=== PATIENT | male | born 1950 | race Hispanic/Latino ===

== ENCOUNTER 2019-11-23 12:43 | Emergency (ER) | payer BC ==
[2019-11-23 13:16] LABS: #Eosinphils 0.1 thou/uL (0.0-0.7); #Lymphocytes 1.7 thou/uL (1.20-3.40); #Neutrophils 7.2 thou/uL (1.40-6.50); %Basophils 0.1 % (0.0-1.0); %Eosinophils 1.1 % (0.0-10.0); %Lymphocytes 16.6 % (21.0-51.0); %Monocytes 9.6 % (0.0-10.0); %Neutrophils 72.5 % (42.0-75.0); Hemoglobin 13.4 g/dL (14.0-18.0); Mean Corpuscular HGB CONC 34.6 g/dL (32.0-36.0); Mean Corpuscular Hemoglobin 30.7 pg (27.0-31.0); Mean Corpuscular Volume 88.6 fL (78.0-98.0); Mean Platelet Volume 8.1 fL (7.4-10.4); Platelet Count 270 thou/uL (130-400); RBC Distribution Width 12.3 % (11.5-14.5); Red Blood Cell (RBC) Count 4.37 mill/uL (4.70-6.10); White Blood Cell (WBC) Count 9.9 thou/uL (4.8-10.8)
[2019-11-23 13:38] LABS: ALT (SGPT) 14 U/L (8-55); AST (SGOT) 15 U/L (5-34); Alkaline Phosphatase 65 U/L (40-110); Anion Gap 15 mmol/L (10-20); BUN (Urea Nitrogen) 13 mg/dL (8.4-25.7); Bilirubin, Total 0.3 mg/dL (0.2-1.2); Calc. Creatinine Clearance 0 mL/min (70-130); Calcium 9.8 mg/dL (7.8-10.44); Carbon Dioxide 28 mmol/L (23-31); Chloride 98 mmol/L (98-107); Estimated GFR-MDRD 74; Globulin 3.2 g/dL (2.4-3.5); Glucose 140 mg/dL (80-115); Lipase 43 U/L (8-78); Potassium 3.8 mmol/L (3.5-5.1); Protein, Total 7.2 g/dL (5.8-8.1); Sodium 137 mmol/L (136-145)
--- NOTE | 2019-11-23 13:57 | CT ---
CT ABDOMEN AND PELVIS WITH IV CONTRAST 11/23/2019 CLINICAL INFORMATION: Fullness after eating. Vomiting. Patient feels bloated. Irregular bowel movement. COMPARISON: None. Technique: Multiple contiguous axial CT images are obtained through the abdomen and pelvis with IV contrast. Cor onal reformatted images are provided. FINDINGS: Lower Chest: Vascular calcifications are seen in the coronary arteries. The lung bases are clear. Vessels: Vascular calcifications are seen in the abdominal aorta and iliac arteries. Abdomen: Portal vein:Patent Gallbladder: Within normal limits for CT imaging. Liver: within normal limits. Spleen: within normal limits. Pancreas: within normal limits. Adrenals: within normal limits. Kidneys: Subcentimeter too small to characterize hypodense lesions are seen in the midportion right k idney. Kidneys otherwise have normal CT appearance. Bowel: Scattered colonic diverticula are seen. Small amount of fluid is seen throughout the colon. Lo ops of small bowel are normal in caliber. Appendix: The appendix is visualized and normal in caliber. Peritoneum: No ascites or free air; no fluid collection. Mesentery and Retroperitoneum: No enlarged mesenteric or retroperitoneal lymph nodes. Abdominal Wall: Small fat-containing bilateral inguinal canals are seen. Pelvis: Reproductive Organs: No pelvic masses. Bladder: within normal limits. Bones: Degenerative changes seen throughout the spine. IMPRESSION: 1. No acute findings in the abdomen or pelvis. 2. Vascular calcifications. 3. Colonic diverticulosis. 4. Subcentimeter too small to characterize right renal hypodensities.
[2019-11-23] MEDS ORDERED: Iopamidol-370 76% 500 ML 1 ML ONE (14:26)
--- NOTE | 2019-12-01 15:32 | EKG ---
Test Reason : ABD PAIN Blood Pressure : / mmHG Vent. Rate : 062 BPM Atrial Rate : 062 BPM P-R Int : 148 ms QRS Dur : 092 ms QT Int : 404 ms P-R-T Axes : 056 -31 044 degrees QTc Int : 410 ms Normal sinus rhythm Left axis deviation Abnormal ECG Confirmed by ROSSANA ROMERO DO ([id number]), associate entertainment editor KEVAN TRAN ([id number]) on 12/01/2019 3:32:46 PM Referred By: HEATHER Confirmed By:ROSSANA ROMERO DO
== END 2019-11-23 14:41 | disposition home or self-care (01) ==
LOC: ERS 12:43
DX: R10.9 Unspecified abdominal pain (principal); R11.0 Nausea; F17.210 Nicotine dependence, cigarettes, uncomplicated; I10 Essential (primary) hypertension; E78.5 Hyperlipidemia, unspecified; E11.9 Type 2 diabetes mellitus without complications; Z79.84 Long term (current) use of oral hypoglycemic drugs; Z79.899 Other long term (current) drug therapy
CPT/HCPCS: 74177; 80053; 83690; 84484; 85025; 93005; Q9967

== ENCOUNTER 2019-12-27 10:39 | Observation (INO) | payer BC ==
[2019-12-27] MEDS ORDERED: Aspirin Chewable 81 MG TAB ONE (11:04)
[2019-12-27] MEDS ORDERED: Nitroglycerin 2% Ointment 1 INCH/1 GM Packet ONE (11:04)
[2019-12-27 11:05] LABS: #Eosinphils 0.1 thou/uL (0.0-0.7); #Lymphocytes 1.6 thou/uL (1.20-3.40); #Monocytes 0.7 thou/uL (0.11-0.59); #Neutrophils 4.9 thou/uL (1.40-6.50); %Basophils 0.1 % (0.0-1.0); %Eosinophils 1.5 % (0.0-10.0); %Lymphocytes 21.4 % (21.0-51.0); %Monocytes 9.5 % (0.0-10.0); %Neutrophils 67.5 % (42.0-75.0); Hemoglobin 13.2 g/dL (14.0-18.0); Mean Corpuscular HGB CONC 33.6 g/dL (32.0-36.0); Mean Corpuscular Hemoglobin 30.4 pg (27.0-31.0); Mean Corpuscular Volume 90.7 fL (78.0-98.0); Mean Platelet Volume 8.1 fL (7.4-10.4); Platelet Count 245 thou/uL (130-400); RBC Distribution Width 12.6 % (11.5-14.5); Red Blood Cell (RBC) Count 4.33 mill/uL (4.70-6.10); White Blood Cell (WBC) Count 7.2 thou/uL (4.8-10.8)
[2019-12-27 11:36] LABS: ALT (SGPT) 20 U/L (8-55); AST (SGOT) 18 U/L (5-34); Albumin 4.4 g/dL (3.4-4.8); Alkaline Phosphatase 66 U/L (40-110); Anion Gap 13 mmol/L (10-20); BUN (Urea Nitrogen) 16 mg/dL (8.4-25.7); Bilirubin, Total 0.3 mg/dL (0.2-1.2); Calc. Creatinine Clearance 0 mL/min (70-130); Calcium 9.4 mg/dL (7.8-10.44); Carbon Dioxide 25 mmol/L (23-31); Chloride 103 mmol/L (98-107); Estimated GFR-MDRD 73; Globulin 2.7 g/dL (2.4-3.5); Glucose 154 mg/dL (80-115); Potassium 4.4 mmol/L (3.5-5.1); Protein, Total 7.1 g/dL (5.8-8.1); Sodium 137 mmol/L (136-145)
--- NOTE | 2019-12-27 11:49 | RAD ---
PORTABLE CHEST 1 VIEW: Date: 12/27/2019 Time: 1059 hours HISTORY: Chest pain, left arm numbness. COMPARISON: 03/02/2003. FINDINGS: The heart size is borderline. The lungs are well expanded without lobar consolidation, pneumothoraces , or pleural effusions. The aorta is tortuous. There is no evidence of karie pulmonary edema. IMPRESSION: No radiographic evidence of acute cardiopulmonary process. POS: OFF
[2019-12-27] MEDS ORDERED: Nitroglycerin 0.4 MG TAB (25 Tab Bottle) SL PRN (11:58)
[2019-12-27 15:36] LABS: Troponin I Less than 0.010 ng/mL (< 0.028)
[2019-12-27] MEDS ORDERED: HumaLOG 300 UNITS/3 ML VIAL SC PRN (16:07)
[2019-12-27] MEDS ORDERED: Dextrose 5% in Water 1,000 ML IV PRN (16:07)
[2019-12-27] MEDS ORDERED: Dextrose 50% Abboject 50 ML SYRINGE SLOW IVP PRN (16:07)
[2019-12-27 17:33] VITALS: BMI 38.0
[2019-12-27 17:51] LABS: Troponin I Less than 0.010 ng/mL (< 0.028)
--- NOTE | 2019-12-27 21:30 | HP ---
CHIEF COMPLAINT: Chest pain. HISTORY OF PRESENT ILLNESS: The patient is a 69-year-old male with past medical history of hypertension and diabetes, who comes into the hospital with complaints of chest pain, worsening for the past couple of days. The patient states that he has been having some chest pressure to his left side of the chest for the past couple of days, he did not take any medications. He stated that today the reason he came in is because he felt his left arm was more weaker than his right and he got concerned, so he came into the hospital for further evaluation. The patient currently states that his left arm weakness has resolved, however continues to have the chest pain. He denies any shortness of breath, any nausea, vomiting, or any diaphoresis. The patient states that he was lawn mowing when he started having this significant pain. The patient states that he has been having this pain for the past couple of days every time, all the time also. PAST MEDICAL HISTORY: History of hypertension, diabetes. PAST SURGICAL HISTORY: He denies. ALLERGIES: HE HAS NONE. MEDICATIONS: The patient does not know the name of the medications; however, he states that he takes something for diabetes and hypertension. FAMILY HISTORY: Denies. SOCIAL HISTORY: He smokes half a pack a day. Drinks beer on the weekend. No drug use. REVIEW OF SYSTEMS: All negative except for the ones mentioned above in the HPI. LABORATORY RESULTS: As of the following; sodium of 137, potassium of 4.4, BUN of 16, creatinine 1.02. His troponin x2 were negative. His BNP is 49. His LFTs are normal. WBCs of 7.2, hemoglobin of 13.2, hematocrit of 39.2, and platelets of 245. His EKG appears to be normal. He had a chest x-ray, which did not show any acute abnormalities. ASSESSMENT AND PLAN: The patient is a very pleasant 69-year-old male, who presents to the hospital with complaints of chest pain. 1. Chest pain. We will trend troponins x3. We will go ahead and do a stress test. We will start the patient's home medications and continue to monitor. 2. Hypertension. We will continue his home medications. 3. Diabetes. We will continue his home medications and check an Accu-Chek before meals and at bedtime. 4. Obesity. The patient was educated on diet, exercise, and weight loss. 5. Deep venous thrombosis prophylaxis. We will put the patient on SCDs and subcu Lovenox. Job ID: [id number]
[2019-12-28 04:58] LABS: Cardiac Risk 4.4 (Less than 4.5)
[2019-12-28] MEDS ORDERED: Aspirin 325 mg Enteric Coated Tablet PO SCH (09:00)
[2019-12-28] MEDS ORDERED: Enoxaparin Sodium 40 MG/0.4 ML SYRINGE SC SCH (09:00)
[2019-12-28] MEDS ORDERED: Regadenoson 0.4 MG/5 ML SYRINGE ONE (09:21)
--- NOTE | 2019-12-28 11:49 | NM ---
CARDIAC SPECT: HISTORY: A 69-year-old male with chest pain, hypertension, diabetes, dyslipidemia, smoker. TECHNIQUE: A myocardial perfusion scan was performed using the single-isotope 2-day protocol with 31 mCi Technet ium 99m sestamibi injected intravenously for the rest and stress images. Pharmacologic stress with L exiScan is monitored and interpreted by Alaina Alfonso, nurse practitioner. FINDINGS: There is a small area of mildly decreased uptake in the apex on the stress images compared to the res t. No other defects are seen. GATED SPECT LVEF: 58%. WALL MOTION EXAM: Normal. IMPRESSION: Findings are suggestive of apical ischemia. POS: OFF
[2019-12-28 15:23] VITALS: TEMP 98.1
[2019-12-28] MEDS ORDERED: Clopidogrel Bisulfate 300 MG TAB PO SCH (15:30)
[2019-12-28] MEDS ORDERED: Aspirin 81 mg Enteric Coated Tablet PO SCH (15:30)
[2019-12-28] MEDS ORDERED: glipiZIDE 10 MG TAB PO SCH (16:30)
[2019-12-28] MEDS ORDERED: metFORMIN 500 MG TAB PO SCH (17:00)
[2019-12-28 17:10] VITALS: BP 160/78
--- NOTE | 2019-12-28 20:27 | CON ---
DATE OF CONSULTATION: HISTORY OF PRESENT ILLNESS: The patient is a very pleasant 69-year-old gentleman with history of hypertension and diabetes mellitus, who presented with left-sided chest discomfort and numbness in his left arm. The patient has previously suffered a cerebrovascular accident. He reports that he occasionally has numbness in his left arm. The patient came to the emergency room after he was at work and developed left-sided chest discomfort. This discomfort persisted throughout the day yesterday and eventually resolved this morning. The patient denied becoming dyspneic or short of breath. The chest pain did not radiate. The patient has multiple cardiac risk factors including diabetes mellitus, hypertension, dyslipidemia, tobacco abuse and a strong family history of coronary artery disease. PAST MEDICAL HISTORY: 1. Hypertension. 2. Diabetes mellitus. 3. History of CVA. PAST SURGICAL HISTORY: Surgery on his right axilla. SOCIAL HISTORY: Smokes half pack per day. FAMILY HISTORY: Strong family history of coronary artery disease with brother with several family members having myocardial infarctions. MEDICATIONS: 1. Coreg 25 b.i.d. 2. Metformin 1000 b.i.d. 3. Glipizide 10 b.i.d. 4. Januvia 100 daily. 5. Norvasc 10 daily. 6. Aspirin 81 daily. 7. Pravastatin 40 daily. 8. Pepcid 40 mg daily. ALLERGIES: NO KNOWN DRUG ALLERGIES REVIEW OF SYSTEMS: Ten-point system otherwise unremarkable. No history of easy bruising or bleeding or bright red blood per rectum. PHYSICAL EXAMINATION: GENERAL: Obese gentleman, in no acute distress. VITAL SIGNS: Blood pressure 167/76. NECK: No jugular venous distention. LUNGS: Clear to auscultation. HEART: Regular rate and rhythm. Normal S1 and S2. No murmurs. ABDOMEN: Distended. EXTREMITIES: Showed mild bilateral edema. VASCULAR: Radial pulses are 2+. LABORATORY DATA: Sodium 137, potassium 4.4, chloride 103, bicarbonate 25, BUN 16, creatinine 1.02, and glucose 154. Troponin 0.01. BNP was 49. White blood cell count 7.2, hemoglobin 13.2, hematocrit 39.2, and platelets are 245. EKG revealed sinus bradycardia, otherwise normal ECG. Troponin level was less than 0.01. Cardiolite stress test revealed normal left ventricular ejection fraction, 58% with possible apical ischemia. IMPRESSION: 1. Chest pain, possibly due to ischemic heart disease. 2. Hypertension. 3. Diabetes mellitus. 4. Dyslipidemia. 5. Tobacco abuse. 6. History of cerebrovascular accident. 7. Obesity. This gentleman presents with prolonged episode of chest pain. There is no evidence of a myocardial infarction based on his EKG or cardiac enzymes. The patient, however, has multiple risk factors and did have evidence of possible ischemia. I explained to the patient that the stress test may underestimate the extent of his possible coronary artery disease. I would recommend proceeding with a cardiac catheterization for more definitive diagnosis. The patient declines to undergo this procedure. He is adamant that he wants to leave the hospital today. I explained the potential life-threatening consequences as the patient being noncompliant. I would treat the patient as if he had unstable angina and start him on Plavix. We would also increase the dose of his lisinopril to lower his blood pressure. I will follow this patient with you through his hospitalization. Job ID: [id number] MTDD
[2019-12-28] MEDS ORDERED: Lisinopril 20 MG TAB PO SCH (21:00)
[2019-12-28] MEDS ORDERED: Atorvastatin Calcium 10 MG TAB PO SCH (21:00)
[2019-12-28] MEDS ORDERED: Carvedilol 25 MG TAB PO SCH (21:00)
[2019-12-28] MEDS ORDERED: Atorvastatin Calcium 40 MG TAB PO SCH (21:00)
--- NOTE | 2019-12-29 02:41 | DIS ---
DATE OF ADMISSION: 12/27/2019 DATE OF DISCHARGE: 12/28/2019 DISCHARGE DIAGNOSES: 1. Chest pain. 2. Abnormal stress test. 3. Hyperlipidemia. 4. Hypertension. 5. Diabetes. 6. Obesity. HOSPITAL COURSE: The patient is 69-year-old male, who initially presented to the hospital with complaints of chest pain. At this time, troponins x2 were negative. He did undergo a stress test, which indicated findings suggestive of apical ischemia. At this time, Cardiology was consulted. The patient was offered cardiac catheterization; however, he stated that he does not want to stay in the hospital and will follow up as an outpatient. Risks were discussed with this patient including , and he understands and he still wanted to go home. His medications were optimized and he was given cardiology's information. DISCHARGE MEDICATIONS: His medications will be: 1. Pravastatin 40 mg at bedtime. 2. Aspirin 81 mg daily. 3. Plavix 75 mg daily. 4. Lisinopril 20 mg b.i.d. 5. Nitroglycerin 0.4 t.i.d. as needed. 6. Glipizide 10 mg b.i.d. 7. Metformin a 1000 mg b.i.d. 8. Coreg 25 mg b.i.d. 9. Januvia 100 mg daily. 10. Amlodipine 10 mg daily. PHYSICAL EXAMINATION: VITAL SIGNS: On discharge, temperature of 98.1, 67, 18, 95% on room air, 167/76. GENERAL: He is awake, alert, and oriented x3. Does not appear in distress. He currently is chest pain-free. CV: S1, S2 present. No murmurs, rubs, or gallops. ABDOMEN: Soft, nontender. Bowel sounds are present x2. Again, he will be discharged to home. Follow up with his primary and Cardiology. Job ID: [id number]
[2019-12-29] MEDS ORDERED: Lisinopril 20 MG TAB PO SCH (09:00)
[2019-12-29] MEDS ORDERED: Aspirin 81 mg Enteric Coated Tablet PO SCH (09:00)
[2019-12-29] MEDS ORDERED: Amlodipine 10 MG TAB PO SCH (09:00)
[2019-12-29] MEDS ORDERED: Alogliptin 25 MG TAB PO SCH (09:00)
[2019-12-29] MEDS ORDERED: Clopidogrel Bisulfate 75 MG TAB PO SCH (09:00)
== END 2019-12-28 17:24 | disposition home or self-care (01) ==
LOC: ERS 10:39 → 2SW 12:06
PROVIDERS: ADMIT Internal Medicine; ATTEND Internal Medicine
DX: R07.89 Other chest pain (principal); R94.39 Abnormal result of other cardiovascular function study; E78.5 Hyperlipidemia, unspecified; I10 Essential (primary) hypertension; E11.9 Type 2 diabetes mellitus without complications; F17.210 Nicotine dependence, cigarettes, uncomplicated; E66.9 Obesity, unspecified; Z68.37 Body mass index [BMI] 37.0-37.9, adult; Z86.73 Personal history of transient ischemic attack (TIA), and cerebral infarction without residual deficits; Z79.82 Long term (current) use of aspirin; Z79.84 Long term (current) use of oral hypoglycemic drugs; Z79.899 Other long term (current) drug therapy
CPT/HCPCS: 36415; 36416; 71045; 78452; 80053; 80061; 83880; 84484; 85025; 93005; 93017; 94760; A9500; G0378; J2785

== ENCOUNTER 2020-01-24 10:30 | Inpatient (IN) | payer BC ==
[2020-01-24 11:32] LABS: Hemoglobin 13.6 g/dL (14.0-18.0); Mean Corpuscular HGB CONC 33.8 g/dL (32.0-36.0); Mean Corpuscular Hemoglobin 30.8 pg (27.0-31.0); Mean Corpuscular Volume 90.9 fL (78.0-98.0); Mean Platelet Volume 8.8 fL (7.4-10.4); Platelet Count 269 thou/uL (130-400); RBC Distribution Width 12.4 % (11.5-14.5); Red Blood Cell (RBC) Count 4.41 mill/uL (4.70-6.10); White Blood Cell (WBC) Count 9.2 thou/uL (4.8-10.8)
[2020-01-24 11:48] LABS: Hemoglobin A1c 7.1 % (4.0-6.0)
[2020-01-24 12:40] LABS: Anion Gap 17 mmol/L (10-20); BUN (Urea Nitrogen) 10 mg/dL (8.4-25.7); Calc. Creatinine Clearance 0 mL/min (70-130); Calcium 9.6 mg/dL (7.8-10.44); Carbon Dioxide 23 mmol/L (23-31); Chloride 102 mmol/L (98-107); Estimated GFR-MDRD Greater than 90; Glucose 186 mg/dL (80-115); Potassium 5.4 mmol/L (3.5-5.1); Sodium 137 mmol/L (136-145)
[2020-01-24 17:08] LABS: SARS-CoV-2 MS2 Positive; SARS-CoV-2 N Gene Negative; SARS-CoV-2 S Gene Negative; SARS-CoV-2 by NAA Not Detected (NotDetected); SARS-CoV-2 orf1ab Negative
[2020-01-29] MEDS ORDERED: Midazolam HCl 2 mg/2 ml Vial ONE (06:33)
[2020-01-29] MEDS ORDERED: Fentanyl 100 MCG/2 ML VIAL ONE (06:33)
[2020-01-29] MEDS ORDERED: Vecuronium 10 MG VIAL ONE ×3 (06:34→12:32)
[2020-01-29] MEDS ORDERED: Dexmedetomidine 200 MCG/2 ML VIAL ONE (06:34)
[2020-01-29] MEDS ORDERED: Midazolam HCl 5 mg/5 ml Vial ONE (06:34)
[2020-01-29] MEDS ORDERED: Albumin 5% 500 ML ONE (06:36)
[2020-01-29] MEDS ORDERED: Heparin 10,000 UNITS/1 ML VIAL 30,000 UNITS in Sodium Chloride 0.9% 1,000 ML FS SCH (06:45)
[2020-01-29] MEDS ORDERED: Insulin Regular 300 UNITS/3 ML VIAL ONE (08:12)
[2020-01-29] MEDS ORDERED: Fentanyl 100 MCG/2 ML VIAL SLOW IVP PRN ×2 (11:54)
[2020-01-29] MEDS ORDERED: DOPamine 400 MG/D5W 250 ML 250 ML IVPB PRN (11:54)
[2020-01-29] MEDS ORDERED: Nitroglycerin 50 MG/250 ML BOT 250 ML IVPB PRN (11:54)
[2020-01-29] MEDS ORDERED: Mag-Al 1200 mg/1200 mg/30 ML UDCUP PO PRN (11:54)
[2020-01-29] MEDS ORDERED: Norepinephrine 8 MG/0.9% NS 250 ML IVPB PRN (11:54)
[2020-01-29] MEDS ORDERED: Hetastarch 6% 500 ML 500 ML IVPB PRN (11:54)
[2020-01-29] MEDS ORDERED: Ondansetron PF 4 MG/2 ML Vial IVP PRN (11:54)
[2020-01-29] MEDS ORDERED: Morphine 2 MG/ML VIAL SLOW IVP PRN (11:54)
[2020-01-29] MEDS ORDERED: Bisacodyl 5 MG TAB PO PRN (11:54)
[2020-01-29] MEDS ORDERED: Guaifenesin DM 100-10/5 ML UDCUP PO PRN (11:54)
[2020-01-29] MEDS ORDERED: hydrALAZINE 20 MG/ML VIAL SLOW IVP PRN (11:54)
[2020-01-29] MEDS ORDERED: Bisacodyl 10 MG SUPP PR PRN (11:54)
[2020-01-29] MEDS ORDERED: Post-Op Insulin Drip Protocol IVPB ONE (11:54)
[2020-01-29] MEDS ORDERED: Potassium Chloride 20 MEQ/100 ML PREMIX BAG IVPB PRN (11:54)
[2020-01-29] MEDS ORDERED: niCARdipine 25 MG in Sodium Chloride 0.9% 250 ML 240 ML IVPB PRN (11:54)
[2020-01-29] MEDS ORDERED: Promethazine HCl 25 MG/ML VIAL IM PRN (11:54)
[2020-01-29] MEDS ORDERED: Acetaminophen 325 MG TAB PO PRN (11:54)
[2020-01-29] MEDS ORDERED: HYDROcodone/Acetaminophen 5/325 mg Tablet PO PRN (11:54)
[2020-01-29] MEDS ORDERED: Magnesium 2 GM/50 ML 2 GM in Premix Bag 1 BAG IVPB SCH (12:00)
[2020-01-29] MEDS ORDERED: Sodium Chloride 0.9% 1,000 ML IV SCH (12:00)
[2020-01-29 12:29] LABS: #Lymphocytes 0.9 thou/uL (1.20-3.40); #Neutrophils 13.9 thou/uL (1.40-6.50); %Eosinophils 0.3 % (0.0-10.0); %Lymphocytes 5.4 % (21.0-51.0); %Monocytes 6.5 % (0.0-10.0); %Neutrophils 87.7 % (42.0-75.0); Hemoglobin 11.7 g/dL (14.0-18.0); Mean Corpuscular Hemoglobin 30.9 pg (27.0-31.0); Mean Corpuscular Volume 90.8 fL (78.0-98.0); Mean Platelet Volume 7.8 fL (7.4-10.4); Platelet Count 198 thou/uL (130-400); RBC Distribution Width 12.3 % (11.5-14.5); White Blood Cell (WBC) Count 15.9 thou/uL (4.8-10.8)
[2020-01-29] MEDS ORDERED: Heparin 30,000 units/30 ml VIAL ONE (12:32)
[2020-01-29] MEDS ORDERED: Heparin 5,000 UNITS/ML VIAL ONE (12:32)
[2020-01-29] MEDS ORDERED: Calcium Chloride 1 GM/10 ML Abboject SYRINGE ONE (12:32)
[2020-01-29] MEDS ORDERED: Cardioplegic Soln 1,000 ML BAG ONE (12:32)
[2020-01-29] MEDS ORDERED: Glycopyrrolate 0.2 MG/ML 5 ML SYRINGE ONE (12:32)
[2020-01-29] MEDS ORDERED: Nitroglycerin 50 MG/250 ML BOT ONE (12:32)
[2020-01-29] MEDS ORDERED: Lidocaine 2% PF 100 mg/5 ml Syringe ONE (12:32)
[2020-01-29] MEDS ORDERED: Aminocaproic Acid 5 GM/20 ML VIAL ONE (12:32)
[2020-01-29] MEDS ORDERED: EPHEDRINE 25 MG/5 ML SYRINGE ONE (12:32)
[2020-01-29] MEDS ORDERED: Thrombin 5000 UNITS/5 ML VIAL ONE (12:32)
[2020-01-29] MEDS ORDERED: Lidocaine 1% PF 5 ML VIAL ONE (12:32)
[2020-01-29] MEDS ORDERED: Potassium Chloride 60 MEQ/30 ML VIAL ONE (12:32)
[2020-01-29] MEDS ORDERED: Protamine Sulfate 250 MG/25 ML VIAL ONE (12:32)
[2020-01-29] MEDS ORDERED: PHENYLEPHRINE-NS 100 MCG/ML 10 ML SYRINGE ONE (12:32)
[2020-01-29] MEDS ORDERED: Papaverine 60 MG/2 ML VIAL ONE (12:32)
[2020-01-29] MEDS ORDERED: Mannitol 12.5 GM/50 ML ONE (12:32)
[2020-01-29] MEDS ORDERED: Magnesium Sulfate 1 GM/2 ML VIAL ONE (12:32)
[2020-01-29] MEDS ORDERED: Ondansetron PF 4 MG/2 ML Vial ONE (12:32)
[2020-01-29] MEDS ORDERED: Sodium Bicarb 50 MEQ/50 ML Abboject 8.4% SYRINGE ONE (12:32)
[2020-01-29] MEDS ORDERED: Ketorolac Tromethamine 30 MG/ML VIAL ONE (12:32)
[2020-01-29] MEDS ORDERED: Dexamethasone 20 MG/5 ML VIAL ONE (12:32)
[2020-01-29 12:33] LABS: INR-International Normal Ratio 1.3; PTT 32.2 sec (22.9-36.1); Prothrombin Time 16.1 sec (12.0-14.7)
--- NOTE | 2020-01-29 12:37 | RAD ---
EXAM: Single view of the chest HISTORY: Status post open heart surgery COMPARISON: 12/27/2019 FINDINGS: Single view of the chest shows an enlarged cardiomediastinal silhouette. The patient is st atus post CABG. There appear to be 2 mediastinal drains. A right subclavian central venous catheter seen with its tip in the superior vena cava. No pneumothorax is seen. There is no evidence of consoli dation, mass, or pleural effusion. Degenerative changes are seen in the spine. IMPRESSION: 1. Cardiomegaly 2. Appropriate position of lines and tubes status post sternotomy
[2020-01-29] MEDS: Ketorolac Tromethamine 30 MG/ML VIAL IVP SCH ×2 (12:43→18:11)
[2020-01-29 12:46] LABS: Anion Gap 9 mmol/L (10-20); BUN (Urea Nitrogen) 9 mg/dL (8.4-25.7); Calc. Creatinine Clearance 148 mL/min (70-130); Carbon Dioxide 25 mmol/L (23-31); Chloride 110 mmol/L (98-107); Estimated GFR-MDRD Greater than 90; Glucose 103 mg/dL (80-115); Potassium 4.2 mmol/L (3.5-5.1); Sodium 140 mmol/L (136-145)
[2020-01-29] MEDS: CEFAZOLIN 2 GM in Premix Bag 1 BAG IVPB SCH ×2 (15:33→22:01)
[2020-01-29] MEDS ORDERED: HUMULIN R 100 UNITS in Sodium Chloride 0.9% 100 ML IVPB SCH (17:30)
[2020-01-29 17:55] LABS: Hemoglobin 11.8 g/dL (14.0-18.0)
[2020-01-29 18:13] LABS: Potassium 4.4 mmol/L (3.5-5.1)
[2020-01-29] MEDS ORDERED: Famotidine/PF 20 mg/2ml Vial SLOW IVP SCH (21:00)
[2020-01-30] MEDS: Ketorolac Tromethamine 30 MG/ML VIAL IVP SCH ×4 (00:16→17:33)
[2020-01-30 03:53] LABS: #Lymphocytes 1.8 thou/uL (1.20-3.40); #Monocytes 1.1 thou/uL (0.11-0.59); #Neutrophils 9.9 thou/uL (1.40-6.50); %Eosinophils 0.1 % (0.0-10.0); %Lymphocytes 14.2 % (21.0-51.0); %Monocytes 8.5 % (0.0-10.0); %Neutrophils 77.2 % (42.0-75.0); Hemoglobin 10.7 g/dL (14.0-18.0); Mean Corpuscular HGB CONC 33.8 g/dL (32.0-36.0); Mean Corpuscular Hemoglobin 31.1 pg (27.0-31.0); Mean Corpuscular Volume 91.9 fL (78.0-98.0); Mean Platelet Volume 8.6 fL (7.4-10.4); Platelet Count 206 thou/uL (130-400); RBC Distribution Width 12.6 % (11.5-14.5); Red Blood Cell (RBC) Count 3.44 mill/uL (4.70-6.10); White Blood Cell (WBC) Count 12.8 thou/uL (4.8-10.8)
[2020-01-30 04:16] LABS: Anion Gap 11 mmol/L (10-20); BUN (Urea Nitrogen) 15 mg/dL (8.4-25.7); Calc. Creatinine Clearance 135 mL/min (70-130); Calcium 8.5 mg/dL (7.8-10.44); Carbon Dioxide 22 mmol/L (23-31); Chloride 106 mmol/L (98-107); Estimated GFR-MDRD 90; Glucose 147 mg/dL (80-115); Potassium 3.8 mmol/L (3.5-5.1); Sodium 135 mmol/L (136-145)
[2020-01-30] MEDS: CEFAZOLIN 2 GM in Premix Bag 1 BAG IVPB SCH (05:00)
--- NOTE | 2020-01-30 06:42 | PRG ---
DATE OF SERVICE: SUBJECTIVE: Patient has an uneventful night. Blood pressure running about 130, heart rate anywhere from 50 to 70. His chest tube output is totalled just under 400 cc for the day since surgery. His urine output has been adequate. Chest x-ray is clear. Hemoglobin is 10.7 and his creatinine is 0.85. His sugars have been controlled on an insulin drip currently at 2 units an hour. OBJECTIVE: GENERAL: He is awake, alert, and smiling. LUNGS: Clear to auscultation. ABDOMEN: Soft, nontender. PLAN: At this time is to transfer the patient of the floor. His oral Lasix will be started tomorrow and we will hold potassium supplementation because his potassium was elevated on admission at 5.4, probably related to lisinopril treatment. Job ID: [id number]
[2020-01-30] MEDS ORDERED: Mag-Al 1200 mg/1200 mg/30 ML UDCUP PO PRN (07:40)
[2020-01-30] MEDS ORDERED: Bisacodyl 10 MG SUPP PR PRN (07:40)
[2020-01-30] MEDS ORDERED: Bisacodyl 5 MG TAB PO PRN (07:40)
[2020-01-30] MEDS ORDERED: Nitroglycerin 0.4 MG TAB (25 Tab Bottle) SL PRN (07:40)
[2020-01-30] MEDS ORDERED: Mineral Oil ENEMA PR PRN (07:40)
[2020-01-30] MEDS: Carvedilol 3.125 MG TAB PO SCH ×2 (07:52→16:15)
[2020-01-30] MEDS: glipiZIDE 10 MG TAB PO SCH ×3 (07:54→16:15)
[2020-01-30] MEDS ORDERED: Dextrose 5% in Water 1,000 ML IV PRN ×2 (08:00→08:15)
[2020-01-30] MEDS ORDERED: Dextrose 50% Abboject 50 ML SYRINGE SLOW IVP PRN ×2 (08:00→08:15)
--- NOTE | 2020-01-30 08:04 | RAD ---
EXAM: CHEST ONE VIEW HISTORY: Post open heart surgery. COMPARISON: 01/29/2020 FINDINGS: Right-sided vascular catheter remains in place. Postoperative changes related to CABG are again noted . Cardiac silhouette is mildly enlarged. There is irregular area of increased density overlying right hilar region which may represent atelectasis. Increased density retrocardiac region medial left lung base is also likely attributable to atelectasis. Mild elevation right hemidiaphragm is present. Pulmonary vasculature is within normal limits. No other interval change from prior study. IMPRESSION: 1. Postoperative changes related to CABG with right vascular catheter remain in place. 2. Probable atelectasis overlying the right hilar region and at the left lung base.
[2020-01-30] MEDS ORDERED: Insulin Regular 300 UNITS/3 ML VIAL SC PRN (08:15)
[2020-01-30] MEDS ORDERED: HUMULIN R 100 UNITS in Sodium Chloride 0.9% 100 ML IVPB SCH (08:15)
[2020-01-30] MEDS: Famotidine 20 MG TAB PO SCH ×2 (08:24→20:36)
[2020-01-30] MEDS: Alogliptin 25 MG TAB PO SCH (08:24)
[2020-01-30] MEDS: Aspirin 325 mg Enteric Coated Tablet PO SCH (08:55)
[2020-01-30] MEDS ORDERED: FLU VACC QS2020-21(65YR UP)/PF 240 MCG/0.7 ML SYRINGE IM ONE (09:00)
[2020-01-30] MEDS ORDERED: Aspirin 325 MG TAB PO SCH (09:00)
[2020-01-30] MEDS: Polyethylene Glycol 3350 17 GM Packet PO SCH (09:15)
[2020-01-30] MEDS: Insulin Regular 300 UNITS/3 ML VIAL SC PRN ×2 (11:49→18:39)
--- NOTE | 2020-01-30 12:56 | OP ---
DATE OF PROCEDURE: 01/29/2020 DIAGNOSES: Coronary artery disease, morbid obesity. PROCEDURE PERFORMED: Coronary artery bypass graft x4, MILLER good quality to a good quality LAD, saphenous vein good quality to a 1.5 to 2 mm diagonal and 1.5 mm PDA with posterior plaquing, radial artery to an OM 2.0, good radial artery. DESCRIPTION OF PROCEDURE: After adequate anesthesia had been obtained, I performed a left radial artery harvest while Dr. Al did an endovascular vein harvest of the left greater saphenous vein. Following an arterial harvest and ensuring good collateral flow with plethysmography, skin was closed in the arm and attention was turned to median sternotomy. Left internal mammary artery was harvested, the patient heparinized, and the mammary divided distally. A large amount of thymic fat was removed to allow access into the mediastinum. The aorta was short as I anticipated and dissected cephalad. The aorta and right atrium were cannulated. Cardiopulmonary bypass begun. Aorta was crossclamped and a liter of cold blood cardioplegia was given. The patient had a very large thick heart, and four distal anastomoses were then completed. Following this, the cross-clamp was removed and the partial occluding clamp placed and the two vein graft anastomosis performed on the aortic root. These were marked with rings and the radial artery was anastomosed to the powers of the diagonal. The patient was then weaned from cardiopulmonary bypass. Cannula was removed and the aortic cannulation site secured with a Prolene. Following this, mediastinal drains x2 were placed and the sternum was reapproximated with #7 interrupted wire in combination with three zip ties. Vancomycin paste was used on the sternal edges, platelet-rich blood and platelet-poor plasma on the sternum and subcutaneous tissue. Subcutaneous tissue was closed in layers and the patient is to be taken to the ICU in guarded condition. Job ID: [id number]
[2020-01-30 14:35] VITALS: BMI 35.9
[2020-01-30] MEDS ORDERED: Atorvastatin Calcium 10 MG TAB PO SCH ×2 (21:00)
[2020-01-30 21:38] LABS: Glucose 203 mg/dL (80-115)
[2020-01-31] MEDS: Insulin Regular 300 UNITS/3 ML VIAL SC PRN ×4 (06:10→21:12)
--- NOTE | 2020-01-31 06:49 | PRG ---
DATE OF SERVICE: 01/31/2020 The patient has been afebrile. His blood pressure is running in the 160 range and his heart rate is about 80. Weight this morning is 270. He has voided a couple of times post Adams removal. His chest tubes were removed this morning. He is up in the chair with no specific complaints. Plan at this time is to resume his metformin for elevated blood sugars and then begin Lasix orally today. We will also adjust his blood pressure medicines. Job ID: [id number]
[2020-01-31] MEDS: Carvedilol 6.25 MG TAB PO SCH ×2 (08:02→17:20)
[2020-01-31] MEDS: Polyethylene Glycol 3350 17 GM Packet PO SCH (08:02)
[2020-01-31] MEDS: Furosemide 40 MG TAB PO SCH (08:02)
[2020-01-31] MEDS: Alogliptin 25 MG TAB PO SCH (08:03)
[2020-01-31] MEDS: Aspirin 325 mg Enteric Coated Tablet PO SCH (08:03)
[2020-01-31] MEDS: Famotidine 20 MG TAB PO SCH ×2 (08:03→20:47)
[2020-01-31] MEDS: Lisinopril 10 MG TAB PO SCH (08:03)
[2020-01-31] MEDS: glipiZIDE 10 MG TAB PO SCH ×2 (08:03→17:20)
[2020-01-31] MEDS: metFORMIN 500 MG TAB PO SCH ×2 (08:03→17:20)
[2020-01-31 08:45] LABS: Glucose 253 mg/dL (80-115)
[2020-01-31] MEDS ORDERED: Furosemide 40 MG/4 ML VIAL SLOW IVP SCH (08:45)
[2020-01-31 11:56] LABS: Glucose 188 mg/dL (80-115)
[2020-01-31 18:02] LABS: Glucose 181 mg/dL (80-115)
[2020-01-31] MEDS: HYDROcodone/Acetaminophen 5/325 mg Tablet PO PRN (20:45)
[2020-01-31] MEDS ORDERED: Atorvastatin Calcium 40 MG TAB PO SCH (21:00)
[2020-02-01] MEDS: Insulin Regular 300 UNITS/3 ML VIAL SC PRN (05:54)
[2020-02-01 07:28] LABS: Glucose 179 mg/dL (80-115)
[2020-02-01] MEDS: Alogliptin 25 MG TAB PO SCH (08:41)
[2020-02-01] MEDS: HYDROcodone/Acetaminophen 5/325 mg Tablet PO PRN (08:41)
[2020-02-01] MEDS: Lisinopril 10 MG TAB PO SCH (08:50)
[2020-02-01] MEDS: Famotidine 20 MG TAB PO SCH (08:50)
[2020-02-01] MEDS: metFORMIN 500 MG TAB PO SCH (08:50)
[2020-02-01] MEDS: glipiZIDE 10 MG TAB PO SCH (08:50)
[2020-02-01] MEDS: Carvedilol 6.25 MG TAB PO SCH (08:51)
[2020-02-01] MEDS: Aspirin 325 mg Enteric Coated Tablet PO SCH (08:51)
[2020-02-01] MEDS: Polyethylene Glycol 3350 17 GM Packet PO SCH (08:51)
[2020-02-01] MEDS: Furosemide 40 MG TAB PO SCH (08:51)
[2020-02-01 12:26] VITALS: BP 142/65; TEMP 98.6
--- NOTE | 2020-02-03 08:24 | DIS ---
DATE OF ADMISSION: 01/29/2020 DATE OF DISCHARGE: 02/01/2020 The patient had undergone cardiac cath by Dr. Elliott and was admitted to the hospital for elective coronary bypass grafting. He underwent surgery on 01/28 with 4-vessel bypass with MILLER to an LAD, saphenous vein graft to a diagonal, PDA, and then a radial artery to an obtuse marginal 2. His postoperative course was uneventful. His blood pressure was slightly elevated and his medicines were adjusted accordingly. He did have heart rates in the 40s and 50s perioperatively, probably related to his preoperative Coreg dosages. Sugars were suboptimally controlled, but he is to resume his home medicines and will probably need the addition of insulin at some point unless he has some significant weight loss. His weight in the office was 271 pounds and that compares favorably with his current weight. His discharge medications will include Coreg 12.5 b.i.d., Lasix 40 mg a day for 7 days, lisinopril 20 mg daily. He will also take an aspirin daily, which he was doing prior to admission. He will resume his glipizide 10 b.i.d., metformin 1000 b.i.d., and Januvia. He will receive a prescription for hydrocodone to be transmitted electronically. Discharge and followup instructions have been given. Job ID: [id number]
== END 2020-02-01 12:26 | disposition home or self-care (01) | DRG 236 ==
LOC: SURG A 01-29 05:51 → CCU 01-29 12:09 → 2NO 01-30 18:05
PROVIDERS: ADMIT Thoracic Surgery (Cardiothoracic Vascular Surgery); ATTEND Thoracic Surgery (Cardiothoracic Vascular Surgery)
PROC: 02100Z9 Bypass Coronary Artery, One Artery from Left Internal Mammary, Open Approach (ICD-10-PCS; principal; 2020-01-29)
PROC: 021109W Bypass Coronary Artery, Two Arteries from Aorta with Autologous Venous Tissue, Open Approach (ICD-10-PCS; 2020-01-29)
PROC: 06BQ3ZZ Excision of Left Saphenous Vein, Percutaneous Approach (ICD-10-PCS; 2020-01-29)
PROC: 02100AW Bypass Coronary Artery, One Artery from Aorta with Autologous Arterial Tissue, Open Approach (ICD-10-PCS; 2020-01-29)
PROC: 03BC3ZZ Excision of Left Radial Artery, Percutaneous Approach (ICD-10-PCS; 2020-01-29)
PROC: 5A1221Z Performance of Cardiac Output, Continuous (ICD-10-PCS; 2020-01-29)
DX: I25.10 Atherosclerotic heart disease of native coronary artery without angina pectoris (principal); Z20.828 Contact with and (suspected) exposure to other viral communicable diseases; I10 Essential (primary) hypertension; E78.5 Hyperlipidemia, unspecified; J44.9 Chronic obstructive pulmonary disease, unspecified; E11.9 Type 2 diabetes mellitus without complications; F17.210 Nicotine dependence, cigarettes, uncomplicated; E66.01 Morbid (severe) obesity due to excess calories; Z68.38 Body mass index [BMI] 38.0-38.9, adult; Z79.899 Other long term (current) drug therapy; Z79.82 Long term (current) use of aspirin; Z79.84 Long term (current) use of oral hypoglycemic drugs
CPT/HCPCS: 36415; 36416; 36430; 71045; 80048; 82947; 83036; 85025; 85027; 85610; 85730; 86850; 86900; 86901; 87635; 93005; 93010; 93798; 94640; J0690; J1100; J1642; J1644; J1815; J1885; J1940; J2001; J2150; J2250; J2405; J2440; J2720; J3010; J3370; J3475; J3480; J7620; P9045; S0017; S0028; U0003

== ENCOUNTER 2020-03-12 15:24 | Outpatient (CLI) | payer BC ==
--- NOTE | 2020-03-13 10:04 | RAD ---
KUB AND UPRIGHT AND PA CHEST: Date: 03/12/2020 HISTORY: Abdominal pain and distention. FINDINGS: Bowel gas pattern appears nonobstructed. No free air demonstrated. No renal calculi seen. Arthritic c hanges of the spine. Heart size is enlarged. Postop sternotomy changes. The lungs are clear of any infiltrates. IMPRESSION: No acute findings. POS: NEIL
== END 2020-03-12 15:25 | disposition home or self-care (01) ==
LOC: BICRAD 15:24
PROVIDERS: ATTEND Family Medicine
DX: K56.609 Unspecified intestinal obstruction, unspecified as to partial versus complete obstruction (principal)
CPT/HCPCS: 74022

== ENCOUNTER 2020-03-13 17:32 | Emergency (ER) | payer BC ==
--- NOTE | 2020-03-13 19:01 | ULT ---
US Gallbladder RUQ History: Right upper quadrant pain Comparison: None. Findings: Real-time grayscale and color evaluation right upper quadrant of the abdomen was performed. Visualized portion of the aorta, IVC and pancreas unremarkable. Diffuse increased hepatic echotexture . No hepatic mass. Portal vein is patent with antegrade flow. Gallbladder wall thickness is normal. No pericholecystic fluid. No common bile duct dilatation. Right kidney measures 10.9 x 5 x 4.7 cm without mass, hydronephrosis or abnormal calcifications. Impression: No cholelithiasis or cholecystitis.
[2020-03-13 19:05] LABS: #Eosinphils 0.1 thou/uL (0.0-0.7); #Monocytes 0.8 thou/uL (0.11-0.59); %Eosinophils 1.4 % (0.0-10.0); %Lymphocytes 21.9 % (21.0-51.0); %Monocytes 9.3 % (0.0-10.0); %Neutrophils 67.4 % (42.0-75.0); Hemoglobin 12.6 g/dL (14.0-18.0); Mean Corpuscular HGB CONC 32.7 g/dL (32.0-36.0); Mean Corpuscular Hemoglobin 29.2 pg (27.0-31.0); Mean Corpuscular Volume 89.4 fL (78.0-98.0); Mean Platelet Volume 7.6 fL (7.4-10.4); Platelet Count 289 thou/uL (130-400); RBC Distribution Width 12.9 % (11.5-14.5)
[2020-03-13 19:25] LABS: ALT (SGPT) 13 U/L (8-55); AST (SGOT) 19 U/L (5-34); Albumin 4.1 g/dL (3.4-4.8); Alkaline Phosphatase 76 U/L (40-110); Anion Gap 14 mmol/L (10-20); BUN (Urea Nitrogen) 9 mg/dL (8.4-25.7); Bilirubin, Total 0.3 mg/dL (0.2-1.2); Calc. Creatinine Clearance 0 mL/min (70-130); Calcium 9.3 mg/dL (7.8-10.44); Carbon Dioxide 28 mmol/L (23-31); Chloride 98 mmol/L (98-107); Globulin 3.4 g/dL (2.4-3.5); Glucose 172 mg/dL (80-115); Lipase 44 U/L (8-78); Potassium 3.9 mmol/L (3.5-5.1); Protein, Total 7.5 g/dL (5.8-8.1); Sodium 136 mmol/L (136-145)
== END 2020-03-13 20:20 | disposition home or self-care (01) ==
LOC: ERS 17:32
DX: R14.0 Abdominal distension (gaseous) (principal); I10 Essential (primary) hypertension; E78.5 Hyperlipidemia, unspecified; E11.9 Type 2 diabetes mellitus without complications; Z79.84 Long term (current) use of oral hypoglycemic drugs; Z79.899 Other long term (current) drug therapy
CPT/HCPCS: 36415; 76705; 80053; 83690; 85025; 93005

== ENCOUNTER 2020-11-30 06:19 | Emergency (ER) | payer BC, MEDICARE ==
[2020-11-30] MEDS ORDERED: Ketorolac Tromethamine 30 MG/ML VIAL ONE (08:57)
== END 2020-11-30 09:10 | disposition home or self-care (01) ==
LOC: ERS 06:19
DX: B02.9 Zoster without complications (principal); Z79.899 Other long term (current) drug therapy; Z79.84 Long term (current) use of oral hypoglycemic drugs; I25.10 Atherosclerotic heart disease of native coronary artery without angina pectoris; E11.9 Type 2 diabetes mellitus without complications; E78.5 Hyperlipidemia, unspecified; I10 Essential (primary) hypertension; F17.210 Nicotine dependence, cigarettes, uncomplicated
CPT/HCPCS: 96372; 99282; J1885

== ENCOUNTER 2020-12-09 13:15 | Emergency (ER) | payer BC | END 2020-12-09 16:08 | disposition home or self-care (01) | LOC: ERS 13:15 | DX: B02.29 Other postherpetic nervous system involvement (principal); I25.10 Atherosclerotic heart disease of native coronary artery without angina pectoris; E11.9 Type 2 diabetes mellitus without complications; E78.5 Hyperlipidemia, unspecified; I10 Essential (primary) hypertension | CPT/HCPCS: 99283 ==

== ENCOUNTER 2020-12-11 14:58 | Emergency (ER) | payer BC, MEDICARE ==
[2020-12-11 16:16] LABS: #Eosinphils 0.1 thou/uL (0.0-0.7); #Lymphocytes 1.7 thou/uL (1.20-3.40); #Neutrophils 8.1 thou/uL (1.40-6.50); %Basophils 0.1 % (0.0-1.0); %Eosinophils 1.1 % (0.0-10.0); %Lymphocytes 15.9 % (21.0-51.0); %Monocytes 8.9 % (0.0-10.0); Hemoglobin 14.2 g/dL (14.0-18.0); Mean Corpuscular HGB CONC 33.9 g/dL (32.0-36.0); Mean Corpuscular Hemoglobin 30.6 pg (27.0-31.0); Mean Corpuscular Volume 90.2 fL (78.0-98.0); Mean Platelet Volume 7.9 fL (7.4-10.4); Platelet Count 285 thou/uL (130-400); RBC Distribution Width 13.4 % (11.5-14.5); Red Blood Cell (RBC) Count 4.64 mill/uL (4.70-6.10)
[2020-12-11 16:38] LABS: ALT (SGPT) 17 U/L (8-55); AST (SGOT) 16 U/L (5-34); Albumin 4.1 g/dL (3.4-4.8); Alkaline Phosphatase 100 U/L (40-110); Anion Gap 13 mmol/L (10-20); BUN (Urea Nitrogen) 21 mg/dL (8.4-25.7); Bilirubin, Total 0.3 mg/dL (0.2-1.2); Calc. Creatinine Clearance 0 mL/min (70-130); Carbon Dioxide 23 mmol/L (23-31); Chloride 102 mmol/L (98-107); Globulin 3.4 g/dL (2.4-3.5); Glucose 150 mg/dL (80-115); Lipase 45 U/L (8-78); Potassium 4.3 mmol/L (3.5-5.1); Protein, Total 7.5 g/dL (5.8-8.1); Sodium 134 mmol/L (136-145)
== END 2020-12-11 18:15 | disposition short-term general hospital (02) ==
LOC: ERS 14:58
DX: B02.29 Other postherpetic nervous system involvement (principal); G62.9 Polyneuropathy, unspecified; I25.10 Atherosclerotic heart disease of native coronary artery without angina pectoris; E11.9 Type 2 diabetes mellitus without complications; E78.5 Hyperlipidemia, unspecified; I10 Essential (primary) hypertension; Z79.84 Long term (current) use of oral hypoglycemic drugs; Z79.899 Other long term (current) drug therapy
CPT/HCPCS: 36415; 70450; 80053; 83690; 84484; 85025; 93005

== ENCOUNTER 2022-02-25 06:27 | Emergency (ER) | payer MEDICARE ==
[2022-02-25] MEDS ORDERED: Ondansetron PF 4 MG/2 ML Vial ONE (06:40)
[2022-02-25] MEDS ORDERED: Meclizine HCl 25 MG TAB ONE (06:56)
[2022-02-25] MEDS ORDERED: Diazepam 10 MG/2 ML SYRINGE ONE (06:56)
[2022-02-25] MEDS ORDERED: Dexamethasone 10 MG/ML VIAL ONE (06:56)
[2022-02-25 07:23] LABS: ALT (SGPT) 26 U/L (8-55); AST (SGOT) 18 U/L (5-34); Albumin 4.4 g/dL (3.4-4.8); Alkaline Phosphatase 79 U/L (40-110); Anion Gap 13 mmol/L (10-20); BUN (Urea Nitrogen) 19 mg/dL (8.4-25.7); Bilirubin, Total 0.5 mg/dL (0.2-1.2); Calc. Creatinine Clearance 0 mL/min (70-130); Calcium 9.6 mg/dL (7.8-10.44); Carbon Dioxide 24 mmol/L (23-31); Chloride 99 mmol/L (98-107); Estimated GFR 69; Globulin 3.4 g/dL (2.4-3.5); Glucose 232 mg/dL (80-115); Lipase 40 U/L (8-78); Potassium 4.1 mmol/L (3.5-5.1); Protein, Total 7.8 g/dL (5.8-8.1); Sodium 132 mmol/L (136-145)
[2022-02-25 07:31] LABS: #Eosinphils 0.2 thou/uL (0.0-0.7); #Lymphocytes 1.4 thou/uL (1.20-3.40); #Monocytes 0.6 thou/uL (0.11-0.59); #Neutrophils 7.4 thou/uL (1.40-6.50); %Basophils 0.3 % (0.0-1.0); %Eosinophils 1.7 % (0.0-10.0); %Lymphocytes 14.7 % (21.0-51.0); %Monocytes 6.3 % (0.0-10.0); %Neutrophils 77.1 % (42.0-75.0); Hemoglobin 14.8 g/dL (14.0-18.0); Mean Corpuscular Hemoglobin 30.6 pg (27.0-31.0); Mean Corpuscular Volume 92.7 fl (78.0-98.0); Mean Platelet Volume 8.6 fL (7.4-10.4); Platelet Count 217 10x3/uL (130-400); RBC Distribution Width 12.1 % (11.5-14.5); Red Blood Cell (RBC) Count 4.82 mill/uL (4.70-6.10); White Blood Cell (WBC) Count 9.6 10x3/uL (4.8-10.8)
[2022-02-25 08:14] LABS: Bilirubin Negative (Negative); Blood, Urine Negative (Negative); Clarity Clear (Clear); Glucose, Urine (Dipstick) Greater than 1000 mg/dL (Negative); Ketone, Urine Negative (Negative); Leukocyte Negative Leu/uL (Negative); Nitrite Negative (Negative); Protein, Urine (Dipstick) 10 mg/dL (Neg-Trace); Specific Gravity, Urine 1.024 (1.002-1.036); Urobilinogen Normal mg/dL (Less than 2); pH, Urine 6.5 (5.0-9.0)
== END 2022-02-25 09:50 | disposition home or self-care (01) ==
LOC: ERS 06:27
DX: R42 Dizziness and giddiness (principal); I10 Essential (primary) hypertension; E11.9 Type 2 diabetes mellitus without complications; E78.5 Hyperlipidemia, unspecified; Z79.84 Long term (current) use of oral hypoglycemic drugs; Z79.899 Other long term (current) drug therapy
CPT/HCPCS: 70450; 80053; 81003; 83690; 85025; 87086; 93005; 96374; 96375; J1100; J2405; J3360

== ENCOUNTER 2024-11-08 07:39 | Inpatient (IN) | payer MEDICARE ==
[2024-11-08] MEDS ORDERED: Heparin 5,000 UNITS/ML VIAL ONE (08:29)
[2024-11-08] MEDS ORDERED: Glycopyrrolate 0.2 MG/ML 5 ML SYRINGE ONE (08:39)
[2024-11-08] MEDS ORDERED: PROPOFOL 20 ML ONE (08:39)
[2024-11-08] MEDS ORDERED: Lidocaine 1% PF 5 ML VIAL ONE (08:39)
[2024-11-08] MEDS ORDERED: PHENYLEPHRINE-NS 100 MCG/ML 10 ML SYRINGE ONE ×2 (08:39→12:03)
[2024-11-08] MEDS ORDERED: Ondansetron PF 4 MG/2 ML Vial ONE (08:39)
[2024-11-08] MEDS ORDERED: Rocuronium Bromide 10 MG/ML (10ML VIAL) ONE (08:39)
[2024-11-08] MEDS ORDERED: fentaNYL PF 100 MCG/2 ML SYRINGE ONE (08:39)
[2024-11-08] MEDS ORDERED: CEFAZOLIN 2 GM VIAL ONE (09:58)
[2024-11-08] MEDS ORDERED: SUGAMMADEX SODIUM 200 MG/2 ML VIAL ONE ×2 (12:25→12:37)
[2024-11-08] MEDS ORDERED: Phenylephrine 40 MG/NS 250 ML 250 ML IVPB PRN (13:12)
[2024-11-08] MEDS ORDERED: Acetaminophen 325 MG TAB PO PRN (13:12)
[2024-11-08] MEDS ORDERED: Nitroglycerin 50 MG/250 ML BOT 250 ML IVPB PRN (13:12)
[2024-11-08] MEDS: NIFEdipine XL 60 MG ER.TAB PO SCH (14:42)
[2024-11-08] MEDS: hydrALAZINE 20 MG/ML VIAL SLOW IVP PRN (19:50)
[2024-11-08] MEDS: metFORMIN 500 MG TAB PO SCH (19:56)
[2024-11-08 20:23] VITALS: BMI 35.9
[2024-11-08] MEDS: glipiZIDE 10 MG TAB PO SCH (20:29)
[2024-11-08] MEDS: Carvedilol 25 MG TAB PO SCH (20:37)
[2024-11-09 01:30] VITALS: BP 170/60
[2024-11-09] MEDS: Famotidine 20 MG TAB PO PRN (01:35)
[2024-11-09] MEDS: Ondansetron PF 4 MG/2 ML Vial IVP PRN (03:53)
[2024-11-09] MEDS: Aspirin 81 mg Enteric Coated Tablet PO SCH (07:54)
[2024-11-09] MEDS: Ezetimibe 10 MG TAB PO SCH (07:54)
[2024-11-09] MEDS: Losartan 25 MG TAB PO SCH (07:55)
[2024-11-09 08:24] VITALS: TEMP 98.1
[2024-11-09] MEDS: Alogliptin 25 MG TAB PO SCH (08:27)
== END 2024-11-09 08:28 | disposition home or self-care (01) | DRG 36 ==
LOC: SURG A 07:39 → EDSTATUS 09:03 → CCU 18:34
PROVIDERS: ADMIT Thoracic Surgery (Cardiothoracic Vascular Surgery); ATTEND Thoracic Surgery (Cardiothoracic Vascular Surgery)
PROC: 037J3DZ Dilation of Left Common Carotid Artery with Intraluminal Device, Percutaneous Approach (ICD-10-PCS; principal; 2024-11-08)
PROC: X2AJ336 Cerebral Embolic Filtration, Extracorporeal Flow Reversal Circuit from Left Common Carotid Artery, Percutaneous Approach, New Technology Group 6 (ICD-10-PCS; 2024-11-08)
DX: I65.22 Occlusion and stenosis of left carotid artery (principal); I10 Essential (primary) hypertension; E78.5 Hyperlipidemia, unspecified; I25.10 Atherosclerotic heart disease of native coronary artery without angina pectoris; I50.9 Heart failure, unspecified; I11.0 Hypertensive heart disease with heart failure; K59.00 Constipation, unspecified; F10.90 Alcohol use, unspecified, uncomplicated; F17.210 Nicotine dependence, cigarettes, uncomplicated; N40.0 Benign prostatic hyperplasia without lower urinary tract symptoms; Z98.890 Other specified postprocedural states; Z95.828 Presence of other vascular implants and grafts; Z95.1 Presence of aortocoronary bypass graft; Z79.01 Long term (current) use of anticoagulants; Z79.899 Other long term (current) drug therapy; Z97.2 Presence of dental prosthetic device (complete) (partial)
CPT/HCPCS: 36416; C1725; C1769; C1876; C1884; J0169; J0360; J0665; J1100; J1642; J1644; J1815; J2405; J2704; J2720; J7030

== ENCOUNTER 2025-01-04 12:58 | Outpatient (CLI) | payer MEDICARE ==
[2025-01-04] MEDS ORDERED: Iopamidol 370 76% 100 ML VIAL ONE (13:57)
== END 2025-01-04 12:59 | disposition home or self-care (01) ==
LOC: CT 12:58
PROVIDERS: ATTEND Internal Medicine Gastroenterology
DX: R10.32 Left lower quadrant pain (principal); R10.13 Epigastric pain; K63.89 Other specified diseases of intestine
CPT/HCPCS: 74177; Q9967

== ENCOUNTER 2025-01-28 07:14 | Day surgery (SDC) | payer MEDICARE ==
[2025-01-28] MEDS ORDERED: PROPOFOL 20 ML ONE ×5 (08:09→10:34)
[2025-01-28] MEDS ORDERED: NOREPINEPHRINE 8 MG/250 ML-D5W 250 ML ONE (09:48)
[2025-01-28] MEDS ORDERED: PHENYLEPHRINE-NS 100 MCG/ML 10 ML SYRINGE ONE (10:07)
[2025-01-28] MEDS ORDERED: Glycopyrrolate 0.2 MG/ML 5 ML SYRINGE ONE (10:07)
== END 2025-01-28 11:50 | disposition home or self-care (01) ==
LOC: SDC 07:14
PROVIDERS: ATTEND Internal Medicine Gastroenterology
PROC: 0DJ08ZZ Inspection of Upper Intestinal Tract, Via Natural or Artificial Opening Endoscopic (ICD-10-PCS; principal; 2025-01-28)
PROC: 0DBK8ZZ Excision of Ascending Colon, Via Natural or Artificial Opening Endoscopic (ICD-10-PCS; 2025-01-28)
PROC: 0DBL8ZZ Excision of Transverse Colon, Via Natural or Artificial Opening Endoscopic (ICD-10-PCS; 2025-01-28)
PROC: 0DBM8ZZ Excision of Descending Colon, Via Natural or Artificial Opening Endoscopic (ICD-10-PCS; 2025-01-28)
PROC: 0DBH8ZZ Excision of Cecum, Via Natural or Artificial Opening Endoscopic (ICD-10-PCS; 2025-01-28)
DX: D64.9 Anemia, unspecified (principal); D12.2 Benign neoplasm of ascending colon; D12.0 Benign neoplasm of cecum; D12.4 Benign neoplasm of descending colon; D12.3 Benign neoplasm of transverse colon; K63.5 Polyp of colon; K59.09 Other constipation; K57.30 Diverticulosis of large intestine without perforation or abscess without bleeding; I10 Essential (primary) hypertension; I25.10 Atherosclerotic heart disease of native coronary artery without angina pectoris; E11.9 Type 2 diabetes mellitus without complications; I73.9 Peripheral vascular disease, unspecified; K21.9 Gastro-esophageal reflux disease without esophagitis; E78.00 Pure hypercholesterolemia, unspecified; Z86.0100 Personal history of colon polyps, unspecified; Z86.73 Personal history of transient ischemic attack (TIA), and cerebral infarction without residual deficits; Z95.1 Presence of aortocoronary bypass graft; Z79.899 Other long term (current) drug therapy; Z79.84 Long term (current) use of oral hypoglycemic drugs
CPT/HCPCS: 43235; 45381; 45385; C1889; J2250; J2704; J3010; 88305